=== PATIENT | male | born 1965 | race Two or more races ===

== ENCOUNTER 2023-03-12 15:32 | Inpatient (IN) | payer MEDICAID, OTHER ==
[~2023-03-12] VITALS: Ht 160 cm; Wt 85.8 kg
[2023-03-12 16:56] LABS: Mean Corpuscular Hemoglobin 31.1 pg (28.0-32.0)
[2023-03-12 16:57] LABS: Hematocrit 39.7 % (41.0-53.0); Hemoglobin 13.9 g/dL (13.5-17.5); Mean Corpuscular Hgb Conc. 34.9 g/dL (32.0-36.0); Mean Corpuscular Volume 89.2 fL (80.0-100.0); Red Blood Cells 4.45 10^6/uL (4.5-5.90); Red Cell Distribution Width 12.5 % (11.8-14.3)
[2023-03-12] MEDS ORDERED: VANCOMYCIN 1GM/250ML 250 ML IV ONE (17:00)
[2023-03-12 17:12] LABS: Basophils % (manual) 0 (0.0-2.0); Blast Cells 0; Eosinophils % (manual) 0 (0-7); INR 1.21 (0.9-1.15); Metamyelocytes % 0; Myelocytes % 0; Partial Thromboplastin Time 28.3 SEC (24.5-34.5); Promyelocytes % 0; Prothrombin Time 12.5 sec (9.3-11.8); Reactive Lymphocytes 0
[2023-03-12 17:15] LABS: Alanine Aminotransferase 99 U/L (7-40); Albumin 3.7 g/dL (3.2-4.8); Alkaline Phosphatase 133 U/L (46-116); Anion Gap 15 (5-15); Aspartate Aminotransferase 89 U/L (13-40); BUN/Creatinine Ratio 13.2 (10.0-20.0); Bilirubin, Total 0.9 mg/dL (0.2-1.0); Blood Urea Nitrogen 17 mg/dL (9-23); Calcium 8.6 mg/dL (8.5-10.1); Carbon Dioxide 20 mmol/L (20-30); Chloride 95 mmol/L (98-107); Glucose 248 mg/dL (74-106); Potassium 4.1 mmol/L (3.5-5.1); Sodium 130 mmol/L (136-145); Total Protein 8.2 g/dL (5.7-8.2)
[2023-03-12 17:54] LABS: Erythrocyte Sedimentation Rate 79 mm/hr (0-20)
[2023-03-12 18:40] LABS: Band Neutrophils % (manual) 5; Lymphocytes % (manual) 7 (10.0-50.0); Monocytes % (manual) 6 (0-12); Platelet Estimate Increased
[2023-03-12] MEDS ORDERED: ONDANSETRON HCL 4 MG/2 ML VIAL IV PRN (19:00)
[2023-03-12] MEDS ORDERED: DOCUSATE SOD 100 MG CAP PO PRN (19:00)
[2023-03-12] MEDS ORDERED: ACETAMINOPHEN 325 MG TAB PO PRN (19:00)
[2023-03-12] MEDS ORDERED: MORPHINE SULFATE INJ 2 MG/ml SYRG IV PRN (19:00)
[2023-03-12] MEDS ORDERED: DEXTROSE (50%) 50ML SYRG IV PRN (19:00)
[2023-03-12] MEDS ORDERED: VANCOMYCIN PER PHARMACY 0 MG IV SCH (19:00)
[2023-03-12] MEDS ORDERED: TETANUS-DIPTH-ACEL PERTUSSIS 0.5ML SYR Tdap IM ONE (19:45)
[2023-03-12] MEDS ORDERED: CLINDAMYCIN 600MG IV 50 ML IV ONE (19:45)
[2023-03-12 23:00] VITALS: O2SAT 99
[2023-03-13] MEDS: ACCU-CHEK COMFORT CURVE STRIP VI SCH ×5 (00:13→21:36)
[2023-03-13] MEDS: SODIUM CHLORIDE 0.9% 1,000 ML IV SCH ×5 (00:14→21:30)
[2023-03-13] MEDS: InsuLIN REG 1unit/0.01ml Soln (100units/ml) SC SCH ×5 (01:05→21:38)
[2023-03-13] MEDS: CEFEPIME 1GM/ 50ML 50 ML IV SCH ×3 (02:14→21:30)
[2023-03-13 04:15] LABS: Basophils # (auto) 0.1 10 ^3/uL (0-0.2); Basophils % (auto) 0.3 % (0.0-2.0); Eosinophils # (auto) 0 10 ^3/uL (0-0.8); Eosinophils % (auto) 0.2 % (0.0-7.0); Hematocrit 31.9 % (41.0-53.0); Hemoglobin 11.1 g/dL (13.5-17.5); Lymphocytes # (auto) 1.6 10 ^3/uL (0.4-5.4); Lymphocytes % (auto) 8.1 % (10.0-50.0); Mean Corpuscular Hgb Conc. 34.9 g/dL (32.0-36.0); Mean Corpuscular Volume 88.9 fL (80.0-100.0); Monocytes # (auto) 1.1 10 ^3/uL (0-1.3); Monocytes % (auto) 5.5 % (0.0-12.0); Neutrophils # (auto) 16.8 10 ^3/uL (1.6-8.6); Neutrophils % (auto) 85.9 % (37.0-80.0); Red Blood Cells 3.59 10^6/uL (4.5-5.90); Red Cell Distribution Width 12.5 % (11.8-14.3); White Blood Cell 19.6 10^3/uL (4.4-10.8)
[2023-03-13 04:27] LABS: Alanine Aminotransferase 60 U/L (7-40); Albumin 3.1 g/dL (3.2-4.8); Alkaline Phosphatase 103 U/L (46-116); Anion Gap 7 (5-15); Aspartate Aminotransferase 41 U/L (13-40); BUN/Creatinine Ratio 14.6 (10.0-20.0); Blood Urea Nitrogen 18 mg/dL (9-23); Calcium 7.8 mg/dL (8.7-10.4); Carbon Dioxide 24 mmol/L (20-30); Chloride 98 mmol/L (98-107); Glucose 272 mg/dL (74-106); Potassium 3.8 mmol/L (3.5-5.1); Sodium 129 mmol/L (136-145)
[2023-03-13 04:28] LABS: Bilirubin, Total 0.5 mg/dL (0.2-1.0); Total Protein 6.9 g/dL (5.7-8.2)
[2023-03-13 07:13] LABS: Urine Bacteria FEW /hpf (None Seen); Urine Blood Negative /uL (Negative); Urine Clarity HAZY (Clear); Urine Color Yellow (Yellow); Urine Hyaline Cast MANY /lpf (0 - 2); Urine Mucus FEW (None Seen); Urine Protein, UAD 2+ (Negative); Urine Specific Gravity 1.019 (1.001-1.035); Urine Urobilinogen Normal (Negative); Urine WBC 12 /hpf (0 - 3); Urine pH 5.5 (5.0-8.0)
[2023-03-13 07:35] VITALS: PULSE 97; RESP 16; O2SAT 98
[2023-03-13] MEDS ORDERED: ENOXAPARIN SOD 40 MG/0.4 ML SYRINGE SC SCH (10:00)
[2023-03-13] MEDS: BENAZEPRIL HCL 10 MG TAB PO SCH (10:07)
[2023-03-13] MEDS: VANCOMYCIN 1GM/250ML 250 ML IV SCH (12:01)
[2023-03-13] MEDS: ENOXAPARIN SOD 40 MG/0.4 ML SYRINGE SC SCH (21:23)
[2023-03-13 22:00] VITALS: BP 149/72; PULSE 85; RESP 17; TEMP 99.2; O2SAT 97
[2023-03-14] MEDS: VANCOMYCIN 1GM/250ML 250 ML IV SCH ×2 (00:32→13:24)
[2023-03-14 05:00] VITALS: BP 139/77; PULSE 86; RESP 18; TEMP 98.5; O2SAT 96
[2023-03-14] MEDS: SODIUM CHLORIDE 0.9% 1,000 ML IV SCH ×3 (05:05→17:45)
[2023-03-14] MEDS: ACCU-CHEK COMFORT CURVE STRIP VI SCH ×4 (06:00→22:42)
[2023-03-14] MEDS: InsuLIN REG 1unit/0.01ml Soln (100units/ml) SC SCH ×4 (06:01→23:04)
[2023-03-14] MEDS: CEFEPIME 1GM/ 50ML 50 ML IV SCH ×2 (08:55→22:53)
[2023-03-14] MEDS: BENAZEPRIL HCL 10 MG TAB PO SCH (08:56)
[2023-03-14] MEDS: ENOXAPARIN SOD 40 MG/0.4 ML SYRINGE SC SCH ×2 (08:56→22:41)
[2023-03-14 09:00] VITALS: BP 130/74; PULSE 90; RESP 20; TEMP 98.3; O2SAT 95
[2023-03-14] MEDS: INSULIN LANTUS (GLARGINE) 1 /0.01ml (100units/ml) SC SCH (09:03)
[2023-03-14 13:00] VITALS: BP 143/77; PULSE 86; RESP 20; TEMP 99; O2SAT 98
[2023-03-14 17:00] VITALS: BP 134/74; PULSE 87; RESP 20; TEMP 98.9; O2SAT 95
[2023-03-14 22:00] VITALS: BP 136/76; PULSE 89; RESP 15; TEMP 99.3; O2SAT 92
[2023-03-15] VITALS (7 sets, daily range): BP systolic 106–142; BP diastolic 59–76; PULSE 80–101; RESP 16–20; TEMP 97.6–98.8; O2SAT 95–100
[2023-03-15] MEDS: VANCOMYCIN 1GM/250ML 250 ML IV SCH ×3 (00:12→21:38)
[2023-03-15] MEDS: SODIUM CHLORIDE 0.9% 1,000 ML IV SCH ×5 (01:05→21:04)
[2023-03-15] MEDS: InsuLIN REG 1unit/0.01ml Soln (100units/ml) SC SCH ×4 (06:27→22:05)
[2023-03-15] MEDS: ACCU-CHEK COMFORT CURVE STRIP VI SCH ×4 (06:28→22:06)
[2023-03-15] MEDS: ENOXAPARIN SOD 40 MG/0.4 ML SYRINGE SC SCH ×2 (08:19→21:36)
[2023-03-15] MEDS: BENAZEPRIL HCL 10 MG TAB PO SCH (10:00)
[2023-03-15] MEDS: CEFEPIME 1GM/ 50ML 50 ML IV SCH ×2 (10:14→17:51)
[2023-03-15] MEDS: INSULIN LANTUS (GLARGINE) 1 /0.01ml (100units/ml) SC SCH (10:22)
[2023-03-15 13:03] LABS: Basophils # (auto) 0.1 10 ^3/uL (0-0.2); Basophils % (auto) 0.4 % (0.0-2.0); Eosinophils # (auto) 0.1 10 ^3/uL (0-0.8); Eosinophils % (auto) 0.3 % (0.0-7.0); Hematocrit 32.5 % (41.0-53.0); Hemoglobin 11.4 g/dL (13.5-17.5); Lymphocytes # (auto) 1.5 10 ^3/uL (0.4-5.4); Lymphocytes % (auto) 8.2 % (10.0-50.0); Mean Corpuscular Hemoglobin 30.8 pg (28.0-32.0); Mean Corpuscular Volume 87.9 fL (80.0-100.0); Monocytes # (auto) 1.3 10 ^3/uL (0-1.3); Monocytes % (auto) 6.8 % (0.0-12.0); Neutrophils # (auto) 15.9 10 ^3/uL (1.6-8.6); Neutrophils % (auto) 84.3 % (37.0-80.0); Red Blood Cells 3.69 10^6/uL (4.5-5.90); Red Cell Distribution Width 12.4 % (11.8-14.3); White Blood Cell 18.9 10^3/uL (4.4-10.8)
[2023-03-15 13:17] LABS: Chloride 101 mmol/L (98-107); Sodium 133 mmol/L (136-145)
[2023-03-15 13:18] LABS: Anion Gap 4 (5-15); Calcium 8.2 mg/dL (8.5-10.1); Carbon Dioxide 28 mmol/L (20-30)
[2023-03-15 13:23] LABS: BUN/Creatinine Ratio 9.2 (10.0-20.0); Blood Urea Nitrogen 7 mg/dL (9-23); Glucose 147 mg/dL (74-106)
[2023-03-15 13:30] LABS: INR 1.23 (0.9-1.15); Partial Thromboplastin Time 29.8 SEC (24.5-34.5); Prothrombin Time 12.7 sec (9.3-11.8)
[2023-03-15] MEDS ORDERED: PROPOFOL 10 MG/ML 20 ML IV ONE (14:22)
[2023-03-15] MEDS ORDERED: GLYCOPYRROLATE 0.2 MG/ML 1ML VIAL ONE (14:23)
[2023-03-15] MEDS ORDERED: ONDANSETRON HCL 4 MG/2 ML VIAL ONE (14:23)
[2023-03-15] MEDS ORDERED: DexAMETHasone SOD PHOS 10MG/1ML VIAL INJ ONE (14:23)
[2023-03-15] MEDS ORDERED: fentaNYL CITRATE 100 MCG/2 ML VL ONE (14:31)
[2023-03-15] MEDS ORDERED: EPINEPHrine HCL 1 MG/1 ML AMP ONE (14:53)
[2023-03-15] MEDS ORDERED: SODIUM CHLORIDE LOCK 20 ML ONE (14:53)
[2023-03-15] MEDS ORDERED: HYDROmorphone HCL 2 MG/ML VL/or syr IV PRN (15:45)
[2023-03-15] MEDS ORDERED: NALOXONE HCL 0.4 MG/ML VIAL IV PRN (15:45)
[2023-03-15] MEDS ORDERED: LABETALOL HCL 5 MG/ML 4ML SYRINGE IV PRN (15:45)
[2023-03-15] MEDS ORDERED: hydrALAZINE HCL 20 MG/ML VL IV PRN (15:45)
[2023-03-15] MEDS ORDERED: FLUMAZENIL 0.1 MG/ML INJ 10ML MDV IV PRN (15:45)
[2023-03-15] MEDS ORDERED: ONDANSETRON HCL 4 MG/2 ML VIAL IV PRN (15:45)
[2023-03-15] MEDS ORDERED: ePHEDrine SULFATE 50 MG/ML AMP IV PRN (15:45)
[2023-03-15] MEDS ORDERED: fentaNYL CITRATE 100 MCG/2 ML VL IV PRN (15:45)
[2023-03-16] MEDS ORDERED: DEXTROSE (50%) 50ML SYRG IV PRN (01:30)
[2023-03-16] MEDS: CEFEPIME 1GM/ 50ML 50 ML IV SCH ×3 (01:39→20:18)
[2023-03-16] MEDS: SODIUM CHLORIDE 0.9% 1,000 ML IV SCH ×2 (04:00→21:58)
[2023-03-16] MEDS: ACCU-CHEK COMFORT CURVE STRIP VI SCH ×5 (04:10→20:25)
[2023-03-16] MEDS: InsuLIN REG 1unit/0.01ml Soln (100units/ml) SC SCH ×5 (04:10→20:36)
[2023-03-16 05:00] VITALS: BP_SYST 126; BP_SYST 140; BP_SYST 145; BP_DIAS 71; BP_DIAS 85; PULSE 62; PULSE 79; RESP 16; RESP 17; TEMP 98.4; O2SAT 97; O2SAT 99
[2023-03-16 07:01] LABS: Alanine Aminotransferase 59 U/L (7-40); Alkaline Phosphatase 102 U/L (46-116); Anion Gap 8 (5-15); Aspartate Aminotransferase 39 U/L (13-40); BUN/Creatinine Ratio 19.3 (10.0-20.0); Basophils # (auto) 0 10 ^3/uL (0-0.2); Basophils % (auto) 0.1 % (0.0-2.0); Bilirubin, Total 0.4 mg/dL (0.2-1.0); Blood Urea Nitrogen 16 mg/dL (9-23); Calcium 7.9 mg/dL (8.7-10.4); Carbon Dioxide 22 mmol/L (20-30); Chloride 103 mmol/L (98-107); Eosinophils # (auto) 0 10 ^3/uL (0-0.8); Hematocrit 33.6 % (41.0-53.0); Hemoglobin 11.6 g/dL (13.5-17.5); Lymphocytes # (auto) 0.6 10 ^3/uL (0.4-5.4); Lymphocytes % (auto) 6.4 % (10.0-50.0); Mean Corpuscular Hgb Conc. 34.7 g/dL (32.0-36.0); Mean Corpuscular Volume 89.4 fL (80.0-100.0); Monocytes # (auto) 0.3 10 ^3/uL (0-1.3); Monocytes % (auto) 3.4 % (0.0-12.0); Neutrophils # (auto) 9.1 10 ^3/uL (1.6-8.6); Neutrophils % (auto) 90.1 % (37.0-80.0); Potassium 4.3 mmol/L (3.5-5.1); Red Blood Cells 3.75 10^6/uL (4.5-5.90); Red Cell Distribution Width 12.4 % (11.8-14.3); Sodium 133 mmol/L (136-145); Total Protein 6.9 g/dL (5.7-8.2); White Blood Cell 10.1 10^3/uL (4.4-10.8)
[2023-03-16 07:05] LABS: Glucose 319 mg/dL (74-106)
[2023-03-16 08:00] VITALS: PULSE 99; RESP 18; O2SAT 99
[2023-03-16] MEDS: VANCOMYCIN 1GM/250ML 250 ML IV SCH ×2 (08:23→18:17)
[2023-03-16 09:00] VITALS: BP 105/64; PULSE 99; RESP 18; TEMP 98.1; O2SAT 99
[2023-03-16] MEDS: BENAZEPRIL HCL 10 MG TAB PO SCH (09:09)
[2023-03-16] MEDS: INSULIN LANTUS (GLARGINE) 1 /0.01ml (100units/ml) SC SCH ×2 (09:10→22:01)
[2023-03-16] MEDS: ENOXAPARIN SOD 40 MG/0.4 ML SYRINGE SC SCH ×2 (10:00→22:00)
[2023-03-16 13:00] VITALS: BP 104/64; PULSE 83; RESP 20; TEMP 98; O2SAT 97
[2023-03-16 16:32] VITALS: BP 114/68; PULSE 91; RESP 19; TEMP 97.8; O2SAT 95
[2023-03-16 21:39] VITALS: BP 139/60; PULSE 74; RESP 18; TEMP 98; O2SAT 98
[2023-03-17] VITALS (7 sets, daily range): BP systolic 122–155; BP diastolic 69–83; PULSE 65–90; RESP 12–19; TEMP 97.8–98.6; O2SAT 95–99
[2023-03-17] MEDS: ACCU-CHEK COMFORT CURVE STRIP VI SCH ×6 (00:05→21:16)
[2023-03-17] MEDS: InsuLIN REG 1unit/0.01ml Soln (100units/ml) SC SCH ×6 (00:07→21:21)
[2023-03-17] MEDS: CEFEPIME 1GM/ 50ML 50 ML IV SCH ×2 (02:13→09:01)
[2023-03-17] MEDS: VANCOMYCIN 1GM/250ML 250 ML IV SCH (04:09)
[2023-03-17] MEDS: INSULIN LANTUS (GLARGINE) 1 /0.01ml (100units/ml) SC SCH ×2 (08:59→21:20)
[2023-03-17] MEDS: ENOXAPARIN SOD 40 MG/0.4 ML SYRINGE SC SCH ×3 (09:11→22:22)
[2023-03-17] MEDS: BENAZEPRIL HCL 10 MG TAB PO SCH (10:00)
[2023-03-17] MEDS ORDERED: TETRACAINE 1% INJ 2 ML VIAL IJ ONE (11:19)
[2023-03-17] MEDS ORDERED: MIDAZOLAM HCL 2MG/2ML 2ml VIAL (1mg/ml) ONE (11:27)
[2023-03-17] MEDS ORDERED: fentaNYL CITRATE 100 MCG/2 ML VL ONE (11:27)
[2023-03-17] MEDS: SODIUM CHLORIDE 0.9% 1,000 ML IV SCH ×2 (11:30→19:30)
[2023-03-17] MEDS ORDERED: MORPHINE SULFATE 4 MG/ML SYR/VIAL IV PRN (12:00)
[2023-03-17] MEDS ORDERED: ONDANSETRON HCL 4 MG/2 ML VIAL IV PRN (12:00)
[2023-03-17] MEDS ORDERED: ACCU-CHEK COMFORT CURVE STRIP VI ONE (12:00)
[2023-03-17] MEDS ORDERED: HYDROmorphone HCL 2 MG/ML VL/or syr IV PRN (12:00)
[2023-03-17] MEDS ORDERED: MIDAZOLAM HCL 2MG/2ML 2ml VIAL (1mg/ml) IV PRN (12:00)
[2023-03-17] MEDS ORDERED: LABETALOL HCL 5 MG/ML 4ML SYRINGE IV PRN (12:00)
[2023-03-17] MEDS ORDERED: ePHEDrine SULFATE 50 MG/ML AMP IV PRN (12:00)
[2023-03-17] MEDS ORDERED: DexAMETHasone SOD PHOS 10MG/1ML VIAL INJ ONE (12:32)
[2023-03-17] MEDS ORDERED: PROPOFOL 10 MG/ML 20 ML IV ONE (12:32)
[2023-03-17] MEDS ORDERED: AMPICILLIN & SULBACTAM SODIUM 3 GM in SODIUM CHL 0.9% 100 ML IV SCH (14:00)
[2023-03-17] MEDS: AMPICILLIN & SULBACTAM SODIUM 3 GM in SODIUM CHL 0.9% 100 ML IV SCH (21:57)
[2023-03-17] MEDS: HYDROcodone-ACET 5/325MG TAB PO PRN (22:29)
[2023-03-18] VITALS (7 sets, daily range): BP systolic 123–174; BP diastolic 66–81; PULSE 65–94; RESP 16–19; TEMP 97.7–98.8; O2SAT 94–98
[2023-03-18] MEDS: ACCU-CHEK COMFORT CURVE STRIP VI SCH ×6 (00:39→20:00)
[2023-03-18] MEDS: InsuLIN REG 1unit/0.01ml Soln (100units/ml) SC SCH ×6 (00:43→20:00)
[2023-03-18] MEDS: SODIUM CHLORIDE 0.9% 1,000 ML IV SCH ×2 (02:26→09:19)
[2023-03-18] MEDS: HYDROcodone-ACET 5/325MG TAB PO PRN ×3 (02:26→17:46)
[2023-03-18] MEDS: AMPICILLIN & SULBACTAM SODIUM 3 GM in SODIUM CHL 0.9% 100 ML IV SCH ×4 (04:40→21:39)
[2023-03-18 06:43] LABS: Basophils # (auto) 0 10 ^3/uL (0-0.2); Basophils % (auto) 0.1 % (0.0-2.0); Eosinophils # (auto) 0 10 ^3/uL (0-0.8); Eosinophils % (auto) 0.2 % (0.0-7.0); Hematocrit 30.9 % (41.0-53.0); Hemoglobin 10.8 g/dL (13.5-17.5); Lymphocytes # (auto) 1.2 10 ^3/uL (0.4-5.4); Lymphocytes % (auto) 9.6 % (10.0-50.0); Mean Corpuscular Hgb Conc. 34.9 g/dL (32.0-36.0); Monocytes # (auto) 0.8 10 ^3/uL (0-1.3); Neutrophils # (auto) 10.9 10 ^3/uL (1.6-8.6); Neutrophils % (auto) 84.1 % (37.0-80.0); Nucleated Red Blood Cells % 0.1 %; Red Blood Cells 3.47 10^6/uL (4.5-5.90); Red Cell Distribution Width 12.5 % (11.8-14.3); White Blood Cell 12.9 10^3/uL (4.4-10.8)
[2023-03-18 06:47] LABS: Calcium 7.7 mg/dL (8.7-10.4); Chloride 106 mmol/L (98-107); Potassium 4.1 mmol/L (3.5-5.1); Sodium 137 mmol/L (136-145)
[2023-03-18 06:48] LABS: Anion Gap 5 (5-15); Carbon Dioxide 26 mmol/L (20-30)
[2023-03-18 06:54] LABS: BUN/Creatinine Ratio 19.1 (10.0-20.0); Blood Urea Nitrogen 13 mg/dL (9-23); Magnesium 1.8 mg/dL (1.6-2.6)
[2023-03-18 07:05] LABS: Glucose 132 mg/dL (74-106)
[2023-03-18] MEDS: ENOXAPARIN SOD 40 MG/0.4 ML SYRINGE SC SCH ×2 (08:57→21:39)
[2023-03-18] MEDS: BENAZEPRIL HCL 10 MG TAB PO SCH (09:12)
[2023-03-18] MEDS: INSULIN LANTUS (GLARGINE) 1 /0.01ml (100units/ml) SC SCH ×2 (12:05→21:34)
[2023-03-19] VITALS (7 sets, daily range): BP systolic 129–162; BP diastolic 64–87; PULSE 80–91; RESP 16–18; TEMP 97.6–99.1; O2SAT 96–97
[2023-03-19] MEDS: InsuLIN REG 1unit/0.01ml Soln (100units/ml) SC SCH ×6 (04:00→21:15)
[2023-03-19] MEDS: ACCU-CHEK COMFORT CURVE STRIP VI SCH ×6 (04:33→20:00)
[2023-03-19] MEDS: AMPICILLIN & SULBACTAM SODIUM 3 GM in SODIUM CHL 0.9% 100 ML IV SCH ×4 (04:33→21:13)
[2023-03-19] MEDS: BENAZEPRIL HCL 10 MG TAB PO SCH (09:39)
[2023-03-19] MEDS: ENOXAPARIN SOD 40 MG/0.4 ML SYRINGE SC SCH ×2 (09:39→21:14)
[2023-03-19] MEDS: HYDROcodone-ACET 5/325MG TAB PO PRN (09:39)
[2023-03-19] MEDS: INSULIN LANTUS (GLARGINE) 1 /0.01ml (100units/ml) SC SCH ×2 (10:00→21:17)
[2023-03-20] MEDS: HYDROcodone-ACET 5/325MG TAB PO PRN ×2 (01:08→12:13)
[2023-03-20] MEDS: InsuLIN REG 1unit/0.01ml Soln (100units/ml) SC SCH ×6 (04:00→20:48)
[2023-03-20] MEDS: AMPICILLIN & SULBACTAM SODIUM 3 GM in SODIUM CHL 0.9% 100 ML IV SCH ×4 (04:51→23:44)
[2023-03-20] MEDS: ACCU-CHEK COMFORT CURVE STRIP VI SCH ×6 (04:51→20:28)
[2023-03-20 04:55] VITALS: BP 145/58; PULSE 72; RESP 16; TEMP 98.4; O2SAT 96
[2023-03-20 09:00] VITALS: BP 130/79; PULSE 74; RESP 16; TEMP 98.6; O2SAT 97
[2023-03-20] MEDS: BENAZEPRIL HCL 10 MG TAB PO SCH (12:12)
[2023-03-20] MEDS: ENOXAPARIN SOD 40 MG/0.4 ML SYRINGE SC SCH ×2 (12:14→23:45)
[2023-03-20] MEDS: INSULIN LANTUS (GLARGINE) 1 /0.01ml (100units/ml) SC SCH ×2 (12:16→22:00)
[2023-03-20 13:00] VITALS: BP 128/82; PULSE 82; RESP 18; TEMP 98.9; O2SAT 98
[2023-03-20] MEDS ORDERED: DOCUSATE SOD 100 MG CAP PO ONE (15:15)
[2023-03-20] MEDS ORDERED: LACTULOSE 20Gm/30ML SOLN PO ONE (15:15)
[2023-03-20 17:00] VITALS: BP 140/74; PULSE 79; RESP 18; TEMP 98; O2SAT 99
[2023-03-20 22:00] VITALS: BP 163/40; PULSE 84; RESP 18; TEMP 98.4; O2SAT 98
[2023-03-20] MEDS: DOCUSATE SOD 100 MG CAP PO SCH (23:44)
[2023-03-21] MEDS: ACCU-CHEK COMFORT CURVE STRIP VI SCH ×6 (00:08→20:00)
[2023-03-21] MEDS: InsuLIN REG 1unit/0.01ml Soln (100units/ml) SC SCH ×6 (00:49→20:00)
[2023-03-21 05:00] VITALS: BP 167/58; PULSE 77; RESP 19; TEMP 98.3; O2SAT 97
[2023-03-21] MEDS: AMPICILLIN & SULBACTAM SODIUM 3 GM in SODIUM CHL 0.9% 100 ML IV SCH ×4 (05:17→22:30)
[2023-03-21] MEDS: BENAZEPRIL HCL 10 MG TAB PO SCH (10:11)
[2023-03-21] MEDS: DOCUSATE SOD 100 MG CAP PO SCH ×2 (10:12→21:06)
[2023-03-21] MEDS: ENOXAPARIN SOD 40 MG/0.4 ML SYRINGE SC SCH ×2 (10:12→21:06)
[2023-03-21] MEDS: INSULIN LANTUS (GLARGINE) 1 /0.01ml (100units/ml) SC SCH ×2 (10:30→21:07)
[2023-03-21] MEDS ORDERED: LACTULOSE 20Gm/30ML SOLN PO ONE (11:45)
[2023-03-21 13:28] VITALS: BP 145/78; PULSE 79; RESP 18; TEMP 98.8; O2SAT 96
[2023-03-21 16:42] VITALS: BP 137/79; PULSE 85; RESP 17; TEMP 98.4; O2SAT 98
[2023-03-21 22:00] VITALS: BP 136/42; PULSE 86; RESP 23; TEMP 98.1; O2SAT 98
[2023-03-21] MEDS: HYDROcodone-ACET 5/325MG TAB PO PRN (23:03)
[2023-03-22] VITALS (7 sets, daily range): BP systolic 136–164; BP diastolic 64–87; PULSE 73–81; RESP 16–20; TEMP 97.6–98.9; O2SAT 98–99
[2023-03-22] MEDS: ACCU-CHEK COMFORT CURVE STRIP VI SCH ×7 (04:00→23:59)
[2023-03-22] MEDS: InsuLIN REG 1unit/0.01ml Soln (100units/ml) SC SCH ×7 (04:00→23:59)
[2023-03-22] MEDS: AMPICILLIN & SULBACTAM SODIUM 3 GM in SODIUM CHL 0.9% 100 ML IV SCH ×4 (05:21→22:31)
[2023-03-22 08:42] LABS: Basophils # (auto) 0.1 10 ^3/uL (0-0.2); Basophils % (auto) 0.6 % (0.0-2.0); Eosinophils # (auto) 0.2 10 ^3/uL (0-0.8); Eosinophils % (auto) 1.4 % (0.0-7.0); Hematocrit 28.9 % (41.0-53.0); Hemoglobin 9.6 g/dL (13.5-17.5); Lymphocytes # (auto) 2.4 10 ^3/uL (0.4-5.4); Lymphocytes % (auto) 19.8 % (10.0-50.0); Mean Corpuscular Hemoglobin 29.9 pg (28.0-32.0); Mean Corpuscular Hgb Conc. 33.1 g/dL (32.0-36.0); Mean Corpuscular Volume 90.6 fL (80.0-100.0); Monocytes # (auto) 0.7 10 ^3/uL (0-1.3); Monocytes % (auto) 5.8 % (0.0-12.0); Neutrophils # (auto) 8.7 10 ^3/uL (1.6-8.6); Neutrophils % (auto) 72.4 % (37.0-80.0); Nucleated Red Blood Cells % 0.1 %; Red Blood Cells 3.19 10^6/uL (4.5-5.90); Red Cell Distribution Width 12.8 % (11.8-14.3); White Blood Cell 12.1 10^3/uL (4.4-10.8)
[2023-03-22 08:55] LABS: Chloride 102 mmol/L (98-107); Sodium 135 mmol/L (136-145)
[2023-03-22 08:56] LABS: Anion Gap 7 (5-15); Calcium 8.3 mg/dL (8.7-10.4); Carbon Dioxide 26 mmol/L (20-30)
[2023-03-22 09:01] LABS: Glucose 119 mg/dL (74-106)
[2023-03-22 09:14] LABS: BUN/Creatinine Ratio 6.8 (10.0-20.0); Blood Urea Nitrogen < 5 mg/dL (9-23); Potassium 4.2 mmol/L (3.5-5.1)
[2023-03-22] MEDS: INSULIN LANTUS (GLARGINE) 1 /0.01ml (100units/ml) SC SCH ×2 (10:00→22:00)
[2023-03-22] MEDS: DOCUSATE SOD 100 MG CAP PO SCH ×2 (10:19→22:30)
[2023-03-22] MEDS: ENOXAPARIN SOD 40 MG/0.4 ML SYRINGE SC SCH ×2 (10:21→22:31)
[2023-03-22] MEDS: BENAZEPRIL HCL 10 MG TAB PO SCH (10:55)
[2023-03-22] MEDS: HYDROcodone-ACET 5/325MG TAB PO PRN ×2 (10:55→17:50)
[2023-03-23] MEDS: InsuLIN REG 1unit/0.01ml Soln (100units/ml) SC SCH ×4 (03:57→16:00)
[2023-03-23] MEDS: ACCU-CHEK COMFORT CURVE STRIP VI SCH ×4 (03:57→16:00)
[2023-03-23] MEDS: AMPICILLIN & SULBACTAM SODIUM 3 GM in SODIUM CHL 0.9% 100 ML IV SCH ×3 (04:13→17:05)
[2023-03-23] MEDS: HYDROcodone-ACET 5/325MG TAB PO PRN ×3 (04:23→18:54)
[2023-03-23 05:00] VITALS: BP 156/65; PULSE 72; RESP 22; TEMP 97.8; O2SAT 96
[2023-03-23 08:00] VITALS: PULSE 85
[2023-03-23] MEDS: BENAZEPRIL HCL 10 MG TAB PO SCH (08:03)
[2023-03-23] MEDS: DOCUSATE SOD 100 MG CAP PO SCH (08:03)
[2023-03-23] MEDS: ENOXAPARIN SOD 40 MG/0.4 ML SYRINGE SC SCH (08:04)
[2023-03-23 09:09] VITALS: BP 148/41; PULSE 78; RESP 18; TEMP 97.8; O2SAT 97
[2023-03-23] MEDS: INSULIN LANTUS (GLARGINE) 1 /0.01ml (100units/ml) SC SCH (10:00)
[2023-03-23 13:09] VITALS: BP 159/66; PULSE 80; RESP 18; TEMP 98.5; O2SAT 99
[2023-03-23] MEDS ORDERED: INSLANTI SC (14:59)
[2023-03-23] MEDS ORDERED: BLOO1KIT60 XX ×2 (14:59)
[2023-03-23] MEDS ORDERED: HYDR-4902 PO (14:59)
[2023-03-23] MEDS ORDERED: BENA-36 PO (14:59)
[2023-03-23 17:00] VITALS: BP 158/51; PULSE 94; RESP 18; TEMP 98.7; O2SAT 97
[2023-03-31] MEDS ORDERED: PATIENTS OWN MEDICATION (Benazepril Hcl 1 TAB) PO SCH (10:00)
== END 2023-03-23 19:00 | disposition home or self-care (01) | DRG 710 ==
LOC: ER 15:32 → OVERFLOW 19:01 → WEST WING 03-13 13:04
PROVIDERS: ADMIT Nurse Practitioner Family; ATTEND Internal Medicine Geriatric Medicine
PROC: 0Y6J0Z1 Detachment at Left Lower Leg, High, Open Approach (ICD-10-PCS; principal; 2023-03-15 14:22)
PROC: 0Y6J0Z1 Detachment at Left Lower Leg, High, Open Approach (ICD-10-PCS; 2023-03-17)
DX: A41.9 Sepsis, unspecified organism (principal); E11.52 Type 2 diabetes mellitus with diabetic peripheral angiopathy with gangrene; I82.402 Acute embolism and thrombosis of unspecified deep veins of left lower extremity; E11.621 Type 2 diabetes mellitus with foot ulcer; M86.172 Other acute osteomyelitis, left ankle and foot; I82.432 Acute embolism and thrombosis of left popliteal vein; L03.116 Cellulitis of left lower limb; L97.529 Non-pressure chronic ulcer of other part of left foot with unspecified severity; E11.628 Type 2 diabetes mellitus with other skin complications; E11.65 Type 2 diabetes mellitus with hyperglycemia; E11.69 Type 2 diabetes mellitus with other specified complication; I10 Essential (primary) hypertension; K59.00 Constipation, unspecified; Z79.84 Long term (current) use of oral hypoglycemic drugs; Z83.3 Family history of diabetes mellitus; Z59.7 Insufficient social insurance and welfare support; I96 Gangrene, not elsewhere classified
CPT/HCPCS: 36415; 71046; 73700; 73718; 80048; 80053; 80202; 81001; 82962; 83036; 83735; 85007; 85025; 85027; 85610; 85652; 85730; 86850; 86900; 86901; 87040; 87070; 87075; 87077; 87186; 87205; 90715; 93005; 93925; 93970; 96365; 96367; 96372; 97163; G0378; J0171; J1100; J1815; J2250; J2405; J2704; J3490

== ENCOUNTER 2023-03-30 08:46 | Inpatient (IN) | payer MEDICAID ==
[~2023-03-30] VITALS: Ht 167.6 cm; Wt 79.0 kg
[~2023-03-30 08:46] MED LIST: BENA-36 PO; BLOO1KIT60 XX; HYDR-4902 PO; INSLANTI SC
[2023-03-30] MEDS ORDERED: CLINDAMYCIN 600MG IV 50 ML IV ONE (09:30)
[2023-03-30] MEDS ORDERED: SODIUM CHLORIDE 0.9% 1,000 ML IV ONE ×2 (09:30)
[2023-03-30] MEDS ORDERED: PIPERACILLIN-TAZOB 3.375GM 100 ML IV ONE (09:30)
[2023-03-30 09:45] VITALS: PULSE 106; RESP 13; O2SAT 99
[2023-03-30 09:53] LABS: Basophils # (auto) 0 10 ^3/uL (0-0.2); Basophils % (auto) 0.2 % (0.0-2.0); Eosinophils # (auto) 0 10 ^3/uL (0-0.8); Eosinophils % (auto) 0.1 % (0.0-7.0); Hematocrit 29.5 % (41.0-53.0); Hemoglobin 10.2 g/dL (13.5-17.5); Lymphocytes # (auto) 1.1 10 ^3/uL (0.4-5.4); Lymphocytes % (auto) 5.8 % (10.0-50.0); Mean Corpuscular Hemoglobin 29.1 pg (28.0-32.0); Mean Corpuscular Hgb Conc. 34.6 g/dL (32.0-36.0); Mean Corpuscular Volume 84.2 fL (80.0-100.0); Monocytes # (auto) 1.1 10 ^3/uL (0-1.3); Monocytes % (auto) 6.4 % (0.0-12.0); Neutrophils # (auto) 15.8 10 ^3/uL (1.6-8.6); Neutrophils % (auto) 87.5 % (37.0-80.0); Red Blood Cells 3.51 10^6/uL (4.5-5.90); White Blood Cell 18.1 10^3/uL (4.4-10.8)
[2023-03-30 10:02] LABS: Alanine Aminotransferase 51 U/L (7-40); Albumin 3.7 g/dL (3.2-4.8); Alkaline Phosphatase 115 U/L (46-116); Anion Gap 8 (5-15); Aspartate Aminotransferase 39 U/L (13-40); BUN/Creatinine Ratio 14.9 (10.0-20.0); Blood Urea Nitrogen 13 mg/dL (9-23); Calcium 8.7 mg/dL (8.5-10.1); Carbon Dioxide 26 mmol/L (20-30); Chloride 95 mmol/L (98-107); Glucose 265 mg/dL (74-106); Potassium 3.9 mmol/L (3.5-5.1); Sodium 129 mmol/L (136-145)
[2023-03-30 10:03] LABS: Bilirubin, Total 1.1 mg/dL (0.2-1.0); Total Protein 7.5 g/dL (5.7-8.2)
[2023-03-30 10:05] LABS: INR 1.14 (0.9-1.15); Partial Thromboplastin Time 28.5 SEC (24.5-34.5); Prothrombin Time 11.9 sec (9.3-11.8)
[2023-03-30] MEDS ORDERED: DEXTROSE (50%) 50ML SYRG IV PRN (11:15)
[2023-03-30] MEDS ORDERED: PIPERACILLIN-TAZOB 3.375GM 100 ML IV SCH (12:00)
[2023-03-30] MEDS: ACCU-CHEK COMFORT CURVE STRIP VI SCH ×3 (12:22→23:31)
[2023-03-30] MEDS: HYDROcodone-ACET 5/325MG TAB PO PRN ×2 (12:27→23:57)
[2023-03-30] MEDS: CLINDAMYCIN 900MG IV 50 ML IV SCH ×2 (12:27→23:30)
[2023-03-30] MEDS ORDERED: HYDROmorphone HCL 2 MG/ML VL/or syr IV ONE (12:45)
[2023-03-30] MEDS: InsuLIN REG 1unit/0.01ml Soln (100units/ml) SC SCH ×3 (12:46→23:31)
[2023-03-30] MEDS ORDERED: CLINDAMYCIN 600MG IV 50 ML IV SCH (14:00)
[2023-03-30] MEDS: SODIUM CHLORIDE 0.9% 1,000 ML IV SCH (15:29)
[2023-03-30] MEDS: ACETAMINOPHEN 325 MG TAB PO PRN (16:03)
[2023-03-30 17:23] LABS: Urine Bacteria FEW /hpf (None Seen); Urine Blood Negative /uL (Negative); Urine Clarity Clear (Clear); Urine Color Yellow (Yellow); Urine Mucus FEW (None Seen); Urine Protein, UAD 2+ (Negative); Urine Specific Gravity 1.026 (1.001-1.035); Urine WBC 4 /hpf (0 - 3)
[2023-03-30] MEDS: PIPERACILLIN-TAZOB 3.375GM 100 ML IV SCH (18:14)
[2023-03-30 19:15] LABS: Basophils # (auto) 0 10 ^3/uL (0-0.2); Basophils % (auto) 0.3 % (0.0-2.0); Eosinophils # (auto) 0 10 ^3/uL (0-0.8); Monocytes # (auto) 0.9 10 ^3/uL (0-1.3)
[2023-03-30 19:16] LABS: Eosinophils % (auto) 0.3 % (0.0-7.0); Hematocrit 24.4 % (41.0-53.0); Hemoglobin 8.2 g/dL (13.5-17.5); Lymphocytes # (auto) 1.4 10 ^3/uL (0.4-5.4); Lymphocytes % (auto) 10.9 % (10.0-50.0); Mean Corpuscular Hemoglobin 28.5 pg (28.0-32.0); Mean Corpuscular Hgb Conc. 33.8 g/dL (32.0-36.0); Mean Corpuscular Volume 84.4 fL (80.0-100.0); Monocytes % (auto) 7.3 % (0.0-12.0); Neutrophils # (auto) 10.3 10 ^3/uL (1.6-8.6); Neutrophils % (auto) 81.2 % (37.0-80.0); Nucleated Red Blood Cells % 0.1 %; Red Blood Cells 2.89 10^6/uL (4.5-5.90); Red Cell Distribution Width 13.8 % (11.8-14.3); White Blood Cell 12.7 10^3/uL (4.4-10.8)
[2023-03-30 20:10] VITALS: PULSE 104; RESP 22; O2SAT 4
[2023-03-31] MEDS: SODIUM CHLORIDE 0.9% 1,000 ML IV SCH ×2 (00:35→17:24)
[2023-03-31] MEDS: PIPERACILLIN-TAZOB 3.375GM 100 ML IV SCH ×3 (02:17→23:28)
[2023-03-31 06:39] LABS: Basophils # (auto) 0 10 ^3/uL (0-0.2); Basophils % (auto) 0.3 % (0.0-2.0); Eosinophils # (auto) 0 10 ^3/uL (0-0.8); Eosinophils % (auto) 0.2 % (0.0-7.0); Hematocrit 26.5 % (41.0-53.0); Lymphocytes # (auto) 1.1 10 ^3/uL (0.4-5.4); Lymphocytes % (auto) 10.5 % (10.0-50.0); Mean Corpuscular Hemoglobin 28.8 pg (28.0-32.0); Mean Corpuscular Volume 84.6 fL (80.0-100.0); Monocytes # (auto) 0.8 10 ^3/uL (0-1.3); Monocytes % (auto) 7.7 % (0.0-12.0); Neutrophils # (auto) 8.6 10 ^3/uL (1.6-8.6); Neutrophils % (auto) 81.3 % (37.0-80.0); Nucleated Red Blood Cells % 0.1 %; Red Blood Cells 3.14 10^6/uL (4.5-5.90); Red Cell Distribution Width 13.7 % (11.8-14.3); White Blood Cell 10.6 10^3/uL (4.4-10.8)
[2023-03-31] MEDS: ACCU-CHEK COMFORT CURVE STRIP VI SCH ×4 (06:44→21:07)
[2023-03-31] MEDS: InsuLIN REG 1unit/0.01ml Soln (100units/ml) SC SCH ×4 (06:44→21:07)
[2023-03-31 06:58] LABS: Alanine Aminotransferase 28 U/L (7-40); Albumin 3.3 g/dL (3.2-4.8); Alkaline Phosphatase 92 U/L (46-116); Anion Gap 8 (5-15); Aspartate Aminotransferase 24 U/L (13-40); BUN/Creatinine Ratio 10.6 (10.0-20.0); Blood Urea Nitrogen 7 mg/dL (9-23); Carbon Dioxide 25 mmol/L (20-30); Chloride 97 mmol/L (98-107); Potassium 3.2 mmol/L (3.5-5.1); Sodium 130 mmol/L (136-145)
[2023-03-31 06:59] LABS: Bilirubin, Total 0.8 mg/dL (0.2-1.0); Total Protein 6.7 g/dL (5.7-8.2)
[2023-03-31 07:05] LABS: Glucose 146 mg/dL (74-106)
[2023-03-31 08:00] VITALS: PULSE 115; RESP 16; O2SAT 94
[2023-03-31] MEDS ORDERED: POTASSIUM CHL 20 Meq TABLET PO ONE (11:30)
[2023-03-31] MEDS ORDERED: VANCOMYCIN PER PHARMACY 0 MG IV SCH (14:15)
[2023-03-31] MEDS ORDERED: VANCOMYCIN 1GM/250ML 250 ML IV ONE (14:15)
[2023-03-31] MEDS ORDERED: LORazepam 2MG/ML-1ML VIAL IV PRN (15:30)
[2023-03-31] MEDS: BENAZEPRIL HCL 10 MG TAB PO SCH (15:51)
[2023-03-31 19:40] VITALS: PULSE 114; RESP 18; O2SAT 97
[2023-03-31] MEDS ORDERED: POTASSIUM CHL 20MEQ/100ML 100 ML IV SCH (20:00)
[2023-03-31] MEDS ORDERED: LORazepam 2MG/ML-1ML VIAL IV ONE (20:30)
[2023-03-31] MEDS ORDERED: IOHEXOL 350 MG/ML 100ML IJ ONE (21:10)
[2023-03-31 22:43] VITALS: BP 149/79; PULSE 105; RESP 22; TEMP 98.5; O2SAT 94
[2023-03-31 23:43] VITALS: PULSE 105; RESP 22; O2SAT 94
[2023-04-01] VITALS (7 sets, daily range): BP systolic 120–142; BP diastolic 48–65; PULSE 90–100; RESP 18–21; TEMP 98.2–100.2; O2SAT 94–98
[2023-04-01] MEDS: VANCOMYCIN 1GM/250ML 250 ML IV SCH ×3 (03:09→22:59)
[2023-04-01] MEDS: SODIUM CHLORIDE 0.9% 1,000 ML IV SCH ×2 (03:10→16:35)
[2023-04-01] MEDS ORDERED: MORPHINE SULFATE INJ 2 MG/ml SYRG IV ONE (04:15)
[2023-04-01] MEDS: ACCU-CHEK COMFORT CURVE STRIP VI SCH ×4 (06:41→21:54)
[2023-04-01] MEDS: InsuLIN REG 1unit/0.01ml Soln (100units/ml) SC SCH ×4 (06:43→21:54)
[2023-04-01 07:39] LABS: Basophils # (auto) 0 10 ^3/uL (0-0.2); Eosinophils # (auto) 0 10 ^3/uL (0-0.8); Eosinophils % (auto) 0.4 % (0.0-7.0); Lymphocytes % (auto) 10.8 % (10.0-50.0); Neutrophils # (auto) 7.3 10 ^3/uL (1.6-8.6); Red Cell Distribution Width 13.9 % (11.8-14.3)
[2023-04-01 07:42] LABS: Basophils % (auto) 0.5 % (0.0-2.0); Hematocrit 22.9 % (41.0-53.0); Hemoglobin 8.1 g/dL (13.5-17.5); Mean Corpuscular Hemoglobin 29.6 pg (28.0-32.0); Mean Corpuscular Hgb Conc. 35.4 g/dL (32.0-36.0); Mean Corpuscular Volume 83.6 fL (80.0-100.0); Monocytes % (auto) 10.7 % (0.0-12.0); Neutrophils % (auto) 77.6 % (37.0-80.0); Red Blood Cells 2.73 10^6/uL (4.5-5.90); White Blood Cell 9.4 10^3/uL (4.4-10.8)
[2023-04-01 07:48] LABS: Anion Gap 7 (5-15); Carbon Dioxide 26 mmol/L (20-30); Chloride 101 mmol/L (98-107); Potassium 3.3 mmol/L (3.5-5.1); Sodium 134 mmol/L (136-145)
[2023-04-01 07:55] LABS: BUN/Creatinine Ratio 7.5 (10.0-20.0); Blood Urea Nitrogen 5 mg/dL (9-23); Glucose 166 mg/dL (74-106)
[2023-04-01] MEDS ORDERED: POTASSIUM CHL 20 Meq TABLET PO ONE (08:30)
[2023-04-01] MEDS: PIPERACILLIN-TAZOB 3.375GM 100 ML IV SCH ×3 (09:14→22:33)
[2023-04-01] MEDS: BENAZEPRIL HCL 10 MG TAB PO SCH (10:23)
[2023-04-01] MEDS: ACETAMINOPHEN 325 MG TAB PO PRN (16:30)
[2023-04-02 04:42] VITALS: BP 135/48; PULSE 95; RESP 21; TEMP 100.4; O2SAT 95
[2023-04-02] MEDS: SODIUM CHLORIDE 0.9% 1,000 ML IV SCH ×2 (05:37→22:20)
[2023-04-02] MEDS: InsuLIN REG 1unit/0.01ml Soln (100units/ml) SC SCH ×4 (07:00→21:31)
[2023-04-02] MEDS: ACCU-CHEK COMFORT CURVE STRIP VI SCH ×4 (07:01→21:16)
[2023-04-02 07:13] LABS: Basophils # (auto) 0.1 10 ^3/uL (0-0.2); Basophils % (auto) 0.6 % (0.0-2.0); Eosinophils # (auto) 0.1 10 ^3/uL (0-0.8); Eosinophils % (auto) 1.4 % (0.0-7.0); Hematocrit 25.2 % (41.0-53.0); Hemoglobin 8.5 g/dL (13.5-17.5); Lymphocytes # (auto) 1.5 10 ^3/uL (0.4-5.4); Lymphocytes % (auto) 15.2 % (10.0-50.0); Mean Corpuscular Hemoglobin 28.5 pg (28.0-32.0); Mean Corpuscular Hgb Conc. 33.9 g/dL (32.0-36.0); Mean Corpuscular Volume 84.3 fL (80.0-100.0); Monocytes % (auto) 9.9 % (0.0-12.0); Neutrophils # (auto) 7.1 10 ^3/uL (1.6-8.6); Neutrophils % (auto) 72.9 % (37.0-80.0); Red Blood Cells 2.99 10^6/uL (4.5-5.90); Red Cell Distribution Width 14.4 % (11.8-14.3); White Blood Cell 9.8 10^3/uL (4.4-10.8)
[2023-04-02 07:26] LABS: Anion Gap 7 (5-15); Carbon Dioxide 26 mmol/L (20-30); Chloride 99 mmol/L (98-107); Potassium 3.5 mmol/L (3.5-5.1); Sodium 132 mmol/L (136-145)
[2023-04-02 07:27] LABS: Calcium 8.3 mg/dL (8.7-10.4)
[2023-04-02 07:32] LABS: BUN/Creatinine Ratio 7.6 (10.0-20.0); Blood Urea Nitrogen 6 mg/dL (9-23); Glucose 180 mg/dL (74-106)
[2023-04-02 07:33] LABS: Magnesium 1.7 mg/dL (1.6-2.6)
[2023-04-02 08:00] VITALS: PULSE 96; RESP 18; O2SAT 96
[2023-04-02] MEDS: PIPERACILLIN-TAZOB 3.375GM 100 ML IV SCH ×3 (08:22→23:05)
[2023-04-02 09:00] VITALS: BP 144/61; PULSE 96; RESP 18; TEMP 98.6; O2SAT 96
[2023-04-02] MEDS: VANCOMYCIN 1GM/250ML 250 ML IV SCH ×2 (09:23→17:48)
[2023-04-02] MEDS: BENAZEPRIL HCL 10 MG TAB PO SCH (09:43)
[2023-04-02] MEDS: HYDROcodone-ACET 5/325MG TAB PO PRN ×2 (12:12→18:00)
[2023-04-02 13:00] VITALS: BP 140/55; PULSE 92; RESP 18; TEMP 98.8; O2SAT 96
[2023-04-02 20:00] VITALS: PULSE 92; RESP 18; O2SAT 96
[2023-04-02 22:00] VITALS: BP 107/78; PULSE 118; RESP 16; TEMP 98.7; O2SAT 95
[2023-04-03] MEDS: VANCOMYCIN 1GM/250ML 250 ML IV SCH ×4 (01:24→21:31)
[2023-04-03 05:00] VITALS: BP 136/46; PULSE 118; RESP 18; TEMP 98.7; O2SAT 96
[2023-04-03] MEDS: ACCU-CHEK COMFORT CURVE STRIP VI SCH ×4 (06:46→21:22)
[2023-04-03] MEDS: InsuLIN REG 1unit/0.01ml Soln (100units/ml) SC SCH ×4 (06:47→21:34)
[2023-04-03] MEDS: HYDROcodone-ACET 5/325MG TAB PO PRN ×4 (06:53→21:22)
[2023-04-03] MEDS: PIPERACILLIN-TAZOB 3.375GM 100 ML IV SCH ×2 (06:54→15:31)
[2023-04-03 08:30] VITALS: BP 121/75; PULSE 104; RESP 18; TEMP 98.4
[2023-04-03] MEDS: SODIUM CHLORIDE 0.9% 1,000 ML IV SCH ×2 (08:35→15:35)
[2023-04-03 09:00] VITALS: BP 121/75; PULSE 104; TEMP 98.4; O2SAT 99
[2023-04-03] MEDS: BENAZEPRIL HCL 10 MG TAB PO SCH (09:51)
[2023-04-03 17:00] VITALS: BP 130/61; PULSE 103; RESP 19; TEMP 98.4; O2SAT 93
[2023-04-03 20:00] VITALS: RESP 17
[2023-04-03 22:00] VITALS: BP 108/61; PULSE 100; RESP 18; TEMP 98.1; O2SAT 94
[2023-04-04] VITALS (7 sets, daily range): BP systolic 122–146; BP diastolic 53–72; PULSE 88–95; RESP 18–20; TEMP 98.2–99.3; O2SAT 93–99
[2023-04-04] MEDS: PIPERACILLIN-TAZOB 3.375GM 100 ML IV SCH ×3 (00:10→15:32)
[2023-04-04 05:54] LABS: Anion Gap 7 (5-15); Carbon Dioxide 29 mmol/L (20-30); Chloride 101 mmol/L (98-107); Potassium 3.5 mmol/L (3.5-5.1); Sodium 137 mmol/L (136-145)
[2023-04-04 05:55] LABS: Calcium 8.8 mg/dL (8.7-10.4)
[2023-04-04 06:00] LABS: BUN/Creatinine Ratio 7.3 (10.0-20.0); Blood Urea Nitrogen 9 mg/dL (9-23); Glucose 181 mg/dL (74-106)
[2023-04-04] MEDS: ACCU-CHEK COMFORT CURVE STRIP VI SCH ×4 (06:15→21:47)
[2023-04-04] MEDS: InsuLIN REG 1unit/0.01ml Soln (100units/ml) SC SCH ×4 (06:18→21:53)
[2023-04-04] MEDS: HYDROcodone-ACET 5/325MG TAB PO PRN ×3 (08:34→21:58)
[2023-04-04] MEDS: BENAZEPRIL HCL 10 MG TAB PO SCH (08:38)
[2023-04-04] MEDS: VANCOMYCIN 1GM/250ML 250 ML IV SCH ×2 (10:22→21:49)
[2023-04-04] MEDS: SODIUM CHLORIDE 0.9% 1,000 ML IV SCH (11:26)
[2023-04-05] MEDS: SODIUM CHLORIDE 0.9% 1,000 ML IV SCH ×2 (00:35→13:55)
[2023-04-05] MEDS: PIPERACILLIN-TAZOB 3.375GM 100 ML IV SCH ×4 (01:01→23:41)
[2023-04-05 05:00] VITALS: BP 140/72; PULSE 90; RESP 18; TEMP 98.4; O2SAT 94
[2023-04-05] MEDS: ACCU-CHEK COMFORT CURVE STRIP VI SCH ×4 (05:55→20:50)
[2023-04-05] MEDS: InsuLIN REG 1unit/0.01ml Soln (100units/ml) SC SCH ×4 (05:58→21:13)
[2023-04-05 08:00] VITALS: PULSE 95; RESP 18
[2023-04-05] MEDS: BENAZEPRIL HCL 10 MG TAB PO SCH (08:50)
[2023-04-05] MEDS: HYDROcodone-ACET 5/325MG TAB PO PRN ×2 (08:50→20:49)
[2023-04-05 13:00] VITALS: BP 146/58; PULSE 89; RESP 20; TEMP 98; O2SAT 96
[2023-04-05] MEDS: VANCOMYCIN 1GM/250ML 250 ML IV SCH (14:40)
[2023-04-05 16:32] VITALS: BP 143/79; PULSE 87; RESP 21; TEMP 98; O2SAT 98
[2023-04-05 20:00] VITALS: PULSE 93; RESP 20
[2023-04-05 22:00] VITALS: BP 150/93; PULSE 88; RESP 20; TEMP 98.2; O2SAT 93
[2023-04-06] VITALS (7 sets, daily range): BP systolic 115–160; BP diastolic 68–83; PULSE 74–86; RESP 17–20; TEMP 97.8–98.8; O2SAT 95–98
[2023-04-06] MEDS: SODIUM CHLORIDE 0.9% 1,000 ML IV SCH (03:15)
[2023-04-06] MEDS: ACCU-CHEK COMFORT CURVE STRIP VI SCH ×4 (06:23→21:45)
[2023-04-06] MEDS: InsuLIN REG 1unit/0.01ml Soln (100units/ml) SC SCH ×4 (06:29→21:45)
[2023-04-06] MEDS: PIPERACILLIN-TAZOB 3.375GM 100 ML IV SCH ×2 (06:43→17:47)
[2023-04-06] MEDS: HYDROcodone-ACET 5/325MG TAB PO PRN ×2 (06:43→11:45)
[2023-04-06] MEDS ORDERED: metFORMIN HYDROCHLORIDE 500 MG TAB PO ONE (08:15)
[2023-04-06] MEDS: BENAZEPRIL HCL 10 MG TAB PO SCH (08:48)
[2023-04-06] MEDS: VANCOMYCIN 1GM/250ML 250 ML IV SCH (09:04)
[2023-04-06] MEDS: metFORMIN HYDROCHLORIDE 500 MG TAB PO SCH (17:47)
[2023-04-07] MEDS: PIPERACILLIN-TAZOB 3.375GM 100 ML IV SCH ×3 (00:11→15:30)
[2023-04-07] MEDS: VANCOMYCIN 1GM/250ML 250 ML IV SCH (03:10)
[2023-04-07] MEDS: HYDROcodone-ACET 5/325MG TAB PO PRN ×2 (04:22→14:42)
[2023-04-07] MEDS: InsuLIN REG 1unit/0.01ml Soln (100units/ml) SC SCH ×2 (06:29→11:30)
[2023-04-07] MEDS: ACCU-CHEK COMFORT CURVE STRIP VI SCH ×2 (06:29→11:30)
[2023-04-07 08:00] VITALS: RESP 18
[2023-04-07 08:01] VITALS: BP 150/81; PULSE 80; RESP 18; TEMP 98.3
[2023-04-07 09:00] VITALS: BP 151/80; PULSE 80; RESP 18; TEMP 98.9; O2SAT 98
[2023-04-07] MEDS: BENAZEPRIL HCL 10 MG TAB PO SCH (09:46)
[2023-04-07] MEDS: metFORMIN HYDROCHLORIDE 500 MG TAB PO SCH (09:46)
[2023-04-07] MEDS ORDERED: INSLANTI SC (10:25)
[2023-04-07] MEDS ORDERED: METF-370 PO (10:25)
[2023-04-07] MEDS ORDERED: BENA-36 PO (10:25)
[2023-04-07] MEDS ORDERED: DOXY-286 PO (10:27)
[2023-04-07 12:14] VITALS: BP 150/81; PULSE 80; RESP 18; TEMP 37.2; O2SAT 95
[2023-04-07 13:00] VITALS: BP 148/82; PULSE 82; RESP 18; O2SAT 98
== END 2023-04-07 15:30 | disposition home or self-care (01) | DRG 349 ==
LOC: ER 08:46 → OVERFLOW 11:07 → WEST WING 11:07
PROVIDERS: ADMIT Nurse Practitioner Family; ATTEND Internal Medicine Geriatric Medicine
DX: T87.44 Infection of amputation stump, left lower extremity (principal); A41.9 Sepsis, unspecified organism; G93.41 Metabolic encephalopathy; E87.1 Hypo-osmolality and hyponatremia; D63.1 Anemia in chronic kidney disease; E11.65 Type 2 diabetes mellitus with hyperglycemia; N18.9 Chronic kidney disease, unspecified; E11.22 Type 2 diabetes mellitus with diabetic chronic kidney disease; I12.9 Hypertensive chronic kidney disease with stage 1 through stage 4 chronic kidney disease, or unspecified chronic kidney disease; Y83.5 Amputation of limb(s) as the cause of abnormal reaction of the patient, or of later complication, without mention of misadventure at the time of the procedure; E87.6 Hypokalemia; Y83.8 Other surgical procedures as the cause of abnormal reaction of the patient, or of later complication, without mention of misadventure at the time of the procedure; Y92.89 Other specified places as the place of occurrence of the external cause
CPT/HCPCS: 36415; 70450; 71045; 71260; 74177; 80048; 80053; 80202; 81001; 82565; 82962; 83605; 83735; 83880; 84484; 85025; 85379; 85610; 85730; 87040; 87081; 87205; 93005; 97110; 97116; 97163; 97530; G0378; J1815; J2543; J3480; J3490